=== PATIENT | female | born 1995 | race Caucasian/White ===

== ENCOUNTER → 2020-02-03 10:54 | Outpatient (CLI) | payer OTHER, SELFPAY ==
[2020-02-03 11:13] LABS: Add Manual Diff / Slide Review NO; Basophils Absolute Auto 0 /uL (0-100); Basophils Percent Auto 0.5 % (0-2); Eosinophils Absolute Auto 0 /uL (0-450); Eosinophils Percent Auto 0.9 % (2-4); Hematocrit 44.6 % (36-46); Hemoglobin 15.3 g/dL (12.0-16.0); Lymphocytes Absolute Auto 2800 /uL (1100-4500); Lymphocytes Percent Auto 52.2 % (25-40); Mean Corpuscular HGB Conc 34.2 % (30-36); Mean Corpuscular Hemoglobin 29.8 PG (26-34); Monocytes Absolute Auto 400 /uL (0-900); Monocytes Percent Auto 7.7 % (3-14); Neutrophils Absolute Auto 2100 /uL (1500-7000); Neutrophils Percent Auto 38.7 % (50-75); Platelet Count 268 X10^3/uL (150-400); Red Blood Cell Count 5.12 X10^6/uL (4.0-5.2); Red Cell Distribution Width 12.2 % (11.6-14.8); White Blood Cell Count 5.3 X10^3/uL (4.5-11.0)
[2020-02-03 11:26] LABS: Alanine Aminotransferase 47 IU/L (<35); Albumin 4.4 g/dL (3.5-5.0); Albumin Globulin Ratio 1.3 (1.0-2.8); Alkaline Phosphatase 47 U/L (38-126); Amylase 240 U/L (30-110); Aspartate Aminotransferase 46 IU/L (14-36); BUN Creatinine Ratio 14.3 (6-22); Bilirubin Total 0.3 mg/dL (0.2-1.3); Blood Urea Nitrogen 10 mg/dL (7-17); Carbon Dioxide 27 mmol/L (22-32); Chloride 105 mmol/L (98-107); Estimated Glomerular Filt Rate > 60.0 mL/min (>60); Globulin 3.3 g/dL (1.7-4.1); Glucose 87 mg/dL (70-100); HEMOLYSIS < 15 (0-50); Lipase 683 U/L (23-300); Potassium 4.6 mmol/L (3.4-5.1); Sodium 140 mmol/L (137-145); Total Protein 7.7 g/dL (6.3-8.2)
[2020-02-03 12:11] LABS: TSH w/ Reflex to FT4 2.88 uIU/mL (0.47-4.68)
[2020-02-03 12:41] LABS: Adenovirus F 40/41 Not Detected (Not Detect); Astrovirus Not Detected (Not Detect); Campylobacter Not Detected (Not Detect); Clostridium difficile toxin AB Not Detected (Not Detect); Cryptosporidium Not Detected (Not Detect); Cyclospora cayetanensis Not Detected (Not Detect); Entamoeba histolytica Not Detected (Not Detect); Enteroaggregative E.coli Not Detected (Not Detect); Enteropathogenic E.coli Not Detected (Not Detect); Enterotoxigenic E.coli It/st Not Detected (Not Detect); Giardia lamblia Not Detected (Not Detect); Norovirus GI/GII Not Detected (Not Detect); Plesiomonsa shigelloides Not Detected (Not Detect); Rotavirus A Not Detected (Not Detect); Salmonella Not Detected (Not Detect); Sapovirus Detected (Not Detect); Shiga-like toxin-prod E.coli Not Detected (Not Detect); Shigella/Enteroinvasive E.coli Not Detected (Not Detect); Vibrio Not Detected (Not Detect); Vibrio cholerae Not Detected (Not Detect); Yersinia enterocolitica Not Detected (Not Detect)
== END ==
PROVIDERS: PCP Nurse Practitioner Gerontology; Referring Provider Physician Assistant; Visit Provider Physician Assistant
DX: R10.2 Pelvic and perineal pain (principal)
CPT/HCPCS: 36415; 80053; 82150; 83690; 84443; 85025; 87507

== ENCOUNTER 2020-02-03 14:24 | Emergency (ER) | payer OTHER, SELFPAY ==
[2020-02-03 14:26] VITALS: BP 122/74; PULSE 72; RESP 18; TEMP 36.6; O2SAT 100
--- NOTE | 2020-02-03 15:52 | ED.ABDPAIN ---
HPI - Abdominal Pain <Aj ArnettKATHLEEN vincentP - Last Filed: 02/03/20 23:40> General Chief Complaint: Abdominal Pain Stated Complaint: abd pain, constipation Time Seen by Provider: 02/03/20 14:32 Source: patient Mode of arrival: Ambulatory Limitations: no limitations History of Present Illness HPI narrative: This is a pleasant 24-year-old female who presents to ED after she was referred by walk-in clinic with abdominal discomfort and elevated amylase of 240 and lipase of 683 with mildly elevated liver function test. Onset of abdominal discomfort about a week ago after eating subway sandwich. She reports left lower quadrant cramping discomfort with decreased stool amount and wells and vonnie consistency stools. She reports abdominal bloated discomfort with some nausea for 2 days which has been resolved. She reports decreased appetite and states subjective low grade fever. She denies chills but felt cold for 2 days which has been resolved. She denies urinary symptoms or unusual vaginal spotting or discharge. She reports currently the pain is tolerable and mild without nausea. She seldomly drinks alcohol and is not currently taking any other medications be size control pills. According to walk-in clinic report, patient also had positive stool testing for sample virus. Related Data Home Medications Medication Instructions Recorded Confirmed desogestrel-ethinyl estradiol 1 tab PO DAILY 02/03/20 02/03/20 [Skip] Allergies Allergy/AdvReac Type Severity Reaction Status Date / Time No Known Drug Allergies Allergy Verified 02/03/20 10:15 Review of Systems <Aj ArnettGREER vincent - Last Filed: 02/03/20 23:40> Review of Systems Narrative: General: Denies (+) resolved fever, chills, fatigue, malaise, sweats. HEENT: Denies sinus pain, ear pain, sore throat, difficulty swallowing, dizziness. Respiratory: Denies dyspnea, cough, wheezing, hemoptysis, sputum. Cardiovascular: Denies chest pain, palpitations, orthopnea, edema. Gastrointestinal: See HPI : Denies dysuria, frequency, incontinence, hematuria, urinary retention. Musculoskeletal: Denies weakness, joint pain or bony pain. Skin: Denies rash, skin lesions, or other. Neurologic: Denies weakness, headache, numbness, change in speech, confusion, seizures, incoordination. Psychiatric: No concerning psychosocial issues. 12-point review of systems is negative except for those stated above. Patient History <Aj MorenoGREER Ignacio - Last Filed: 02/03/20 23:40> Medical History Pelvic cramping (Acute) Social History Smoking Status: Never smoker Smoking Status: Never smoker Exam <GREER Fuentes - Last Filed: 02/03/20 23:40> Narrative Exam Narrative: GEN: Alert, oriented x 3, well appearing and nourished, and in no acute distress. Head: Normal cephalic, atraumatic. No scalp or temporal tenderness, palpable mass or rash. EYES: Pupils are equal, round, and reactive to light and accommodation. Extraocular muscles are intact bilaterally. There is no subconjunctival hemorrhage, exudate and sclera non-icteric. ENT: Bilateral auditory canals and tympanic membranes clear. Hearing grossly intact. Nose without bleeding, purulent discharge or deviation. Facial sinuses nontender to palpate. Mucous membrane moist, no mucosal lesion. Throat without erythema, tonsillar hypertrophy or exudate. Uvula in midline, airway patent. Neck: Trachea in midline. No JVD, non-tender without lymphadenopathy. No masses or thyroid megaly. Supple, non-tender and no meningeal signs. CARDIAC: Normal regular rate and rhythm without murmurs, gallops, or rubs. No chest wall tenderness. No peripheral edema, cyanosis or pallor. Capillary refill is less than 2 seconds. RESPIRATORY: Lungs are clear to auscultate bilaterally. No cough, wheezes, rales, or rhonchi. No stridor, respiratory distress, increase work of breathing, or accessary muscle used. ABD: Abdomen soft, mild TTP in epigastric region and non-distended. No guarding or rebound tenderness to palpate. Bowel sounds are normal in all 4 quadrants. There is no palpable masses or organomegaly. EXT: Full painless ROM of all extremities with no loss of sensation, strength, effusion or edema. SKIN: Warm, dry, normal color for patient. No erythema, lesions or rash over visible areas. BACK: Nontender without deformity or crepitance. No flank tenderness. NEUROLOGICAL: Alert and oriented to place, time and person. Sensation and motor function intact bilaterally. No facial droops, dysphasia. PSYCHIATRIC: Good judgement and reason, without hallucinations, abnormal affect or abnormal behaviors during the examination. Initial Vital Signs Initial Vital Signs: Vital Signs Temperature 97.9 F 02/03/20 14:26 Pulse Rate 72 02/03/20 14:26 Respiratory Rate 18 02/03/20 14:26 Blood Pressure 122/74 02/03/20 14:26 Pulse Oximetry 100 02/03/20 14:26 <Madalyn Watters MD - Last Filed: 02/04/20 08:12> Initial Vital Signs Initial Vital Signs: Vital Signs Temperature 97.9 F 02/03/20 14:26 Pulse Rate 72 02/03/20 14:26 Respiratory Rate 18 02/03/20 14:26 Blood Pressure 122/74 02/03/20 14:26 Pulse Oximetry 100 02/03/20 14:26 Scores <GREER Fuentes - Last Filed: 02/03/20 23:40> GCS Rafa coma scale eye opening: Spontaneous Durant coma scale verbal response: Orientated Rafa coma scale motor response: Obey commands Rafa coma scale total score: 15 Course <GREER Fuentes - Last Filed: 02/03/20 23:40> Orders Ordered: ED Orders 02/03/20 15:52 CT abdomen pelvis w con Stat Reevaluation(s) Reevaluation #1: Patient reports no nausea at this time and pain is tolerable. Consulted Dr. Muñiz with lab findings and CT-abdomen/pelvis. Will see whether the patient could tolerate PO intake. Time: 17:29 Vital Signs Vital signs: Vital Signs - 8 hr 02/03/20 18:35 Pulse Rate 78 Respiratory Rate 14 Blood Pressure 128/82 Pulse Oximetry 100 <Madalyn Watters MD - Last Filed: 02/04/20 08:12> Orders Ordered: ED Orders 02/03/20 15:52 CT abdomen pelvis w con Stat Vital Signs Vital signs: Vital Signs - 8 hr 02/03/20 18:35 Pulse Rate 78 Respiratory Rate 14 Blood Pressure 128/82 Pulse Oximetry 100 MDM - Abdominal Pain <GREER Fuentes - Last Filed: 02/03/20 23:40> Differential Diagnosis Differential diagnosis: Likely abdominal pain, gastroenteritis, pancreatitis and other (Cholecystitis, gallstones, Obstructed gallstones, pancreatic mass) Medical Records Attestation: I reviewed the patient's medical records. Imaging Data CT scan - abdomen/pelvis: Radiologist's Impression: [address] [address] [address] Scan Report Signed Patient: Bea Yu TMR#: [id number] : 1995Acct:[id number] Age/Sex: 24 / FDate of Service: 02/03/20 Loc: ED Accession Number: [id number] Procedure: CT abdomen pelvis w con Ordering Provider: Aj Watkins PROCEDURE: CT ABDOMEN PELVIS W CON INDICATIONS: elevated lipase, amylase, epigastric pain TECHNIQUE: After the administration of intravenous contrast, 5 mm thick sections acquired from the diaphragm to the symphysis. 5 mm coronal and sagittal reformats were acquired. For radiation dose reduction, the following was used: automated exposure control, adjustment of mA and/or kV according to patient size. COMPARISON: None. FINDINGS: Image quality: Excellent. ABDOMEN: Lung bases: Lung bases are clear. Heart size is normal. Solid organs: Liver is normal in size and enhancement. Gallbladder is normal. Biliary system is non dilated. Pancreas enhances normally. Spleen is normal in size and enhancement. No adrenal nodules. Kidneys demonstrate normal size and enhancement, without hydronephrosis. Peritoneum and bowel: Stomach is filled with debris. There is fluid within the small intestine which demonstrates normal caliber. There is mild wall thickening in several jejunal loops and subtle diffusely increased mucosal enhancement of the small intestine. Normal appendix. No free fluid or air. Nodes and vessels: No retroperitoneal or mesenteric adenopathy by size criteria. Aorta and inferior vena cava are normal in size. Miscellaneous: No ventral hernias. PELVIS: Genitourinary: Bladder wall thickness is normal. Miscellaneous: No inguinal hernias or adenopathy. Bones: No suspicious bony lesions. No vertebral body compression fractures. IMPRESSION: 1. Normal CT appearance the pancreas which does not rule out early pancreatitis. 2. Fluid filled small intestine. There is mild wall thickening in several jejunal loops and subtle diffusely increased mucosal enhancement of the small intestine, suggesting enteritis. No findings to suggest small bowel obstruction. 3. Normal appendix. Dictated by: Adriane Bal M.D. on 02/03/2020 at 16:34 Approved by: Adriane Bal M.D. on 02/03/2020 at 16:42 [facility] Narrative Medical decision making narrative: This is 24 year female who was initially evaluated at walk-in clinic and referred to ED for possible pancreatitis. She had blood tests, urine tests, and stool panel tests completed before coming into ED. Physical exam was unremarkable except very mild tenderness to palpate in epigastric region. Patient drinks alcohol seldomly, does not take medications besides control pills. There was no leukocytosis. Liver function tests including AST and ALT were mildly elevated as 46 and 47. Walk-in clinic provider was concerned with patient's elevated lipase of 683 and amylase of 240. Patient's urine test was negative for infection and urine test. Stool sample indicates positive for Sapovirus. Patient is able to tolerate fluids and denies blood in her stool or diarrhea at this time. Patient is afebrile with stable vital signs. CT test of abdomen/pelvis indicates normal appearing liver, gallbladder, spleen, kidney, non dilated biliary system, normally enhance the pancreas. There was fluid-filled small intestine with mild wall thickening and several jejunal loops and subtle diffusely increased mucosal enhancement of the small and testing indicating enteritis. There was no small bowel obstruction seen per CT. Patient reports her pain is tolerable without pain medications and denies nausea. Patient was able to tolerate fluids and crackers without nausea and vomiting. Patient rather follow-up with her primary care physician for re-evaluation on her lab test and possible further imaging test. Patient's findings were discussed with Dr. Muñiz and agrees with follow-up with PCP and return to ED with worsening symptoms. Patient verbalized understanding and in agreement with the treatment plan. Discharge Plan Departure Patient Disposition: Home Clinical Impression: Elevated amylase and lipase Abdominal pain Qualifiers: Abdominal location: upper abdomen, unspecified Qualified Code(s): R10.10 - Upper abdominal pain, unspecified Discharge Date/Time: 02/03/20 18:35 Instructions: DI for Pancreatitis, DI for Viral Gastroenteritis -- Adult, DI for Abdominal Pain-Adult Activity Restrictions/Additional Instructions: You have been diagnosed with [viral Sipo virus infection/gastroenteritis per GI panel with stool test, elevated amylase (240) and lipase (683) which indicates possible early pancreatitis. No indications of urinary tract infection. No signs of severe infection without elevated white count. Liver function test including AST (46) and ALT (47) were mildly elevated. Urine test was negative. CT of Abd/Pelvis normal size of liver, gallbladder, biliary system which is not dilated. Pancreas appears to be normal with normal size spleen and enhancement. There were mild wall thickening in several jejunal loops suggesting enteritis.]. What to do: *Take your medications as directed. Please take Zofran as needed for nausea. You can use Tylenol and or ibuprofen as needed for discomfort. Please eat something bland and easily digested. Please hydrate yourself well. *Follow up with your primary care provider in 2-3 days, call for an appointment. Let them know you were seen in the ED and that we asked you to be seen in follow up. You may need further blood test with repeat LFT and lipase/amylase. You may need further imaging test with ultrasound if your symptoms persists. *Return to ED if you have any new, worsening, or concerning symptoms, such as [chest pain, breathing difficulty, unable to tolerate fluids, dizziness, or any acute concerns.]. Prescriptions: No Action desogestrel-ethinyl estradiol [Skip] 0.15-0.03 mg tablet 1 tab PO DAILY RF: 0 Referrals: Renay Melvin ARNP [Primary Care Provider] - <Madalyn Watters MD - Last Filed: 02/04/20 08:12> Sign Out Provider Sign Out Attestation: I was immediately available in the department for consultation throughout this patient's visit. I agree with documentation as above. Madalyn Watters MD
[2020-02-03 18:35] VITALS: BP 128/82; PULSE 78; RESP 14; O2SAT 100
== END 2020-02-03 18:35 | disposition home or self-care (01) ==
PROVIDERS: Emergency Provider Nurse Practitioner Family; PCP Nurse Practitioner Gerontology
DX: R74.8 Abnormal levels of other serum enzymes (principal); R10.10 Upper abdominal pain, unspecified; K59.00 Constipation, unspecified
CPT/HCPCS: 36415; 74177; 80053; 82150; 83690; 84443; 85025; 87507; 99283; 99284; Q9967